=== PATIENT | female | born 1990 | race Caucasian/White ===

== ENCOUNTER 2019-06-17 00:09 | Emergency (ER) | payer OTHER ==
[~2019-06-17] VITALS: Ht 152.4 cm; Wt 61.2 kg
[2019-06-17] MEDS ORDERED: AUGMENTIN 875-1 EACH PO (00:24)
[2019-06-17 00:35] VITALS: BP 112/82
== END 2019-06-17 00:38 | disposition home or self-care (01) ==
LOC: ER 00:09
DX: J01.10 Acute frontal sinusitis, unspecified (principal); F17.200 Nicotine dependence, unspecified, uncomplicated
CPT/HCPCS: 99282